=== PATIENT | female | born 1960 | race Caucasian/White ===

== ENCOUNTER 2017-02-19 10:58 | Emergency (ER) | payer SELFPAY ==
[~2017-02-19] VITALS: Ht 170.2 cm; Wt 63.8 kg
[2017-02-19] MEDS ORDERED: PREDNISONE50 MG PO (11:40)
[2017-02-19] MEDS ORDERED: MOTRIN600 MG PO (11:40)
[2017-02-19] MEDS ORDERED: FLEXERIL5 MG PO (11:40)
[2017-02-19 12:06] VITALS: BP 143/93
== END 2017-02-19 12:23 | disposition home or self-care (01) ==
LOC: EME 10:58
DX: M54.5 Low back pain (principal); F17.200 Nicotine dependence, unspecified, uncomplicated
CPT/HCPCS: 99281; 99283

== ENCOUNTER 2017-02-21 10:38 | Emergency (ER) | payer SELFPAY ==
[~2017-02-21] VITALS: Ht 170.2 cm; Wt 64.8 kg
[~2017-02-21 10:38] MED LIST: FLEXERIL5 MG PO; MOTRIN600 MG PO; PREDNISONE50 MG PO
[2017-02-21] MEDS ORDERED: LORTAB 5-325 M1 EACH PO (14:58)
[2017-02-21] MEDS ORDERED: PREDNISONE10 MG PO (14:58)
[2017-02-21] MEDS ORDERED: BACLOFEN10 MG PO (14:58)
[2017-02-21 15:22] VITALS: BP 129/87
== END 2017-02-21 15:26 | disposition home or self-care (01) ==
LOC: EME 10:38
DX: M54.42 Lumbago with sciatica, left side (principal); M54.41 Lumbago with sciatica, right side; G89.29 Other chronic pain; S39.012A Strain of muscle, fascia and tendon of lower back, initial encounter; X58.XXXA Exposure to other specified factors, initial encounter; Z72.0 Tobacco use
CPT/HCPCS: 99281; 99284; J1885